=== PATIENT | male | born 1945 | race Two or more races ===

== ENCOUNTER 2025-03-26 15:25 | Outpatient (OUT) | payer MEDICARE, SELFPAY ==
--- NOTE | 2025-03-26 | XR_ITS ---
The [place] [id number] Patient Name: MARANDA DOMINGO MRN: [id number] date: 1945 Sex: M Assigned Patient Location: [facility] Current Patient Location: [facility] Accession/Order Number: [id number] Exam Date: 03/26/2025 23:59 Report Date: 03/27/2025 00:00 At the request of: CHANA FLORES Procedure: XR hip RT 2V w/ pelvis XR hip RT 2V w/ pelvis 03/26/2025 3:58 PM SIGNS AND SYMPTOMS: ^RIGHT HIP PAIN PROTOCOL: Frontal radiograph the pelvis with frontal and frog-leg views of the right hip COMPARISON: None FINDINGS: Degenerative changes are noted in the lumbar spine and sacroiliac joints. 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 Enthesophyte formation is noted along the iliac wings and greater trochanters. There is no fracture or dislocation. XR/XR hip RT 2V w/ pelvis IMPRESSION: No acute bony injury. 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 Degenerative changes are also noted in the lumbar spine and sacroiliac joints. Impression dictated by: Herrera Alcaraz M.D. 03/27/2025 12:00 AM Dictation Location: [place] [address] Electronically authenticated by: [id number] Y Date: 03/27/2025 00:00
--- NOTE | 2025-03-26 | XR_ITS ---
The [address] [address] Patient Name: MARANDA DOMINGO MRN: [id number] date: 1945 Sex: M Assigned Patient Location: [facility] Current Patient Location: [facility] Accession/Order Number: [id number] Exam Date: 03/27/2025 00:00 Report Date: 03/27/2025 00:01 At the request of: CHANA FLORES Procedure: XR knee LT 4V XR knee LT 4V 03/26/2025 3:58 PM SIGNS AND SYMPTOMS: ^LEFT KNEE PAIN PROTOCOL: Frontal, lateral, oblique radiographs of the left knee COMPARISON: None FINDINGS: There is mild to moderate narrowing of the patellofemoral joint space with minimal loss of the weightbearing joint spaces. There is no fracture or dislocation. Surgical clips are noted in the soft tissues along the medial aspect of the proximal tibia. No joint effusion. No soft tissue swelling. XR/XR knee LT 4V IMPRESSION: No fracture or dislocation. Degenerative changes are noted greatest in the patellofemoral joint space. Impression dictated by: Herrera Alcaraz M.D. 03/27/2025 12:01 AM Dictation Location: [place] [id number] Electronically authenticated by: [id number] Y Date: 03/27/2025 00:01
== END 2025-03-26 15:26 | disposition home or self-care (01) ==
LOC: RAD 15:32
PROVIDERS: PCP Nurse Practitioner Family; Visit Provider Nurse Practitioner Family
DX: M25.562 Pain in left knee (principal); M25.551 Pain in right hip; M51.369 Other intervertebral disc degeneration, lumbar region without mention of lumbar back pain or lower extremity pain
CPT/HCPCS: 73502; 73564